=== PATIENT | male | born 1970 | race Hispanic/Latino ===

== ENCOUNTER 2017-08-26 13:40 | Emergency (ER) | payer SELFPAY ==
[~2017-08-26] VITALS: Ht 167.6 cm; Wt 82.0 kg
[2017-08-26 14:08] LABS: HEMATOCRIT 40.6 % (39.0-50.0); HEMOGLOBIN 14.3 g/dl (14.0-18.0); IMMATURE GRANULOCYTES 0.2 % (0.0-1.0); MEAN CORPUSCULAR HGB 31.7 pG CALC (26.0-32.0); MEAN CORPUSCULAR HGB CONC 35.2 g/L CALC (32.0-36.0); NEUT# 2.79 thou/uL (1.82-7.42); RED BLOOD COUNT 4.51 mill/uL (4.70-6.10); RED CELL DISTRI WIDTH 12.1 % (11.5-15.5)
[2017-08-26 14:20] LABS: ALBUMIN 4.4 g/dL (3.2-5.0); ALKALINE PHOSPHATASE 140 u/l (38-126); ANION GAP 18 (6-22 (CALC)); BILIRUBIN, TOTAL 0.3 mg/dL (0.0-1.4); BUN 7 mg/dL (9-20); BUN/CREATININE RATIO 11 (12-20 (CALC)); CALCIUM 8.4 mg/dL (8.4-10.2); CARBON DIOXIDE 18 mmol/l (22-30); CHLORIDE 113 mmol/l (95-108); CREATININE 0.7 mg/dL (0.7-1.3); GFR > 60 ML/MIN (>=60 (CALC)); GFR FOR AFR.AMER. > 60 ML/MIN (>=60 (CALC)); GLUCOSE 110 mg/dL (75-110); POTASSIUM 4.1 mmol/l (3.5-5.1); SGOT/AST 50 u/l (17-59); SGPT/ALT 47 u/l (21-72); SODIUM 145 mmol/l (137-146); TOTAL PROTEIN 7.7 g/dL (6.3-8.2)
[2017-08-26 14:30] LABS: URINE BILIRUBIN - DIPSTICK NEGATIVE (NEGATIVE); URINE BLOOD DIPSTICK NEGATIVE (NEGATIVE); URINE COLOR YELLOW; URINE GLUCOSE - DIPSTICK NEGATIVE (NEGATIVE); URINE KETONE NEGATIVE (NEGATIVE); URINE LEUK ESTERASE NEGATIVE (NEGATIVE); URINE NITRITE - DIPSTICK NEGATIVE (Negative); URINE PH 5.5 (4.5-8.0); URINE PROTEIN - DIPSTICK NEGATIVE (NEG-TRACE); URINE SPECIFIC GRAVITY <=1.005; URINE UROBILINOGEN - DIPSTICK 0.2 E.U./dL (0.2)
[2017-08-26 14:31] LABS: URINE CLARITY CLEAR
[2017-08-26 14:32] LABS: MYOGLOBIN 44 ng/mL (0 - 121)
[2017-08-26 14:33] LABS: ETHYL ALCOHOL 397 mg/dl (0-30)
[2017-08-26] MEDS ORDERED: MOTRIN800 MG PO (14:36)
[2017-08-26] MEDS ORDERED: PENICILLN VK500 MG PO (14:36)
[2017-08-27 06:55] VITALS: BP 152/73
== END 2017-08-27 06:44 | disposition home or self-care (01) | DRG 897 ==
LOC: EDBD 13:40 → ED 13:40
PROVIDERS: Emergency Medicine
DX: F10.129 Alcohol abuse with intoxication, unspecified (principal); K02.9 Dental caries, unspecified; K08.89 Other specified disorders of teeth and supporting structures; Y90.8 Blood alcohol level of 240 mg/100 ml or more; R94.31 Abnormal electrocardiogram [ECG] [EKG]
CPT/HCPCS: S0164

== ENCOUNTER 2021-02-03 18:25 | Emergency (ER) | payer SELFPAY ==
[~2021-02-03] VITALS: Ht 167.6 cm; Wt 59.0 kg
[~2021-02-03 18:25] MED LIST: MOTRIN800 MG PO; PENICILLN VK500 MG PO
[2021-02-03] MEDS ORDERED: DIPHENHYDRAM50 M2 PO (20:04)
[2021-02-03 20:07] VITALS: BP 145/78
== END 2021-02-03 20:09 | disposition home or self-care (01) | DRG 607 ==
LOC: ED 18:25
DX: R21 Rash and other nonspecific skin eruption (principal); L84 Corns and callosities; Z59.0 Homelessness